=== PATIENT | female | born 1965 | race Caucasian/White ===

== ENCOUNTER 2024-04-25 22:29 | Emergency (ER) | payer BC ==
[2024-04-25] MEDS ORDERED: Ondansetron PF 4 MG/2 ML Vial ONE (22:59)
[2024-04-25] MEDS ORDERED: Ketorolac Tromethamine 30 MG (1 mL) VIAL ONE (23:12)
[2024-04-25 23:33] LABS: Bilirubin Neg (Negative); Blood, Urine Negative (Negative); Clarity Clear (Clear); Glucose, Urine (Dipstick) >=1000 mg/dL (Negative); Ketone, Urine 50 mg/dL (Negative); Leukocyte Negative (Negative); Nitrite Negative (Negative); Protein, Urine (Dipstick) 30 mg/dl (Neg-Trace); Urobilinogen Normal mg/dL (Less than 2)
[2024-04-25] MEDS ORDERED: Morphine 10 MG/ML VIAL ONE (23:43)
[2024-04-25 23:44] LABS: CAUTI Indications for Culture Pelvic or flank pain; RBC/HPF 0-3 HPF (0-3); Squamous Epithelial 0-3 HPF (0-3); WBC/HPF 0-3 HPF (0-3)
[2024-04-25 23:45] LABS: Bacteria/HPF Rare-Few HPF (None Seen); Urine Culture Reflex No No
[2024-04-26 00:07] LABS: #Basophils 0.05 10x3/uL (0.0-0.2); #Eosinphils 0.01 10x3/uL (0.0-0.5); #Monocytes 0.74 10x3/uL (0.0-1.1); #Neutrophils 14.81 10x3/uL (1.5-8.4); %Basophils 0.3 % (0.0-2.0); %Eosinophils 0.1 % (0.0-6.0); %Lymphocytes 11.3 % (18.0-47.0); %Monocytes 4.2 % (0.0-10.0); %Neutrophils 83.5 % (40.0-75.0); ALT (SGPT) 20 U/L (8-55); AST (SGOT) 19 U/L (5-34); Albumin 4.2 g/dL (3.5-5.0); Alkaline Phosphatase 85 U/L (40-110); Anion Gap 20 mmol/L (10-20); BUN (Urea Nitrogen) 12 mg/dL (9.8-20.1); Bilirubin, Total 0.8 mg/dL (0.2-1.2); Calc. Creatinine Clearance 0 mL/min (70-130); Calcium 9.5 mg/dL (7.8-10.44); Carbon Dioxide 23 mmol/L (22-29); Chloride 94 mmol/L (98-107); Estimated GFR 96; Globulin 3.8 g/dL (2.4-3.5); Glucose 305 mg/dL (70-105); Hematocrit 44.4 % (34.9-44.5); Hemoglobin 16.5 g/dL (12.0-15.5); Lipase 13 U/L (8-78); Mean Corpuscular HGB CONC 37.2 g/dL (32.0-36.0); Mean Corpuscular Volume 80.7 fL (81.6-98.3); Mean Platelet Volume 9.5 fL (7.4-10.4); Platelet Count 313 10x3/uL (150-450); Potassium 3.7 mmol/L (3.5-5.1); RBC Distribution Width 12.2 % (11.5-14.5); Sodium 133 mmol/L (136-145); White Blood Cell (WBC) Count 17.7 10x3/uL (3.5-10.5)
[2024-04-26] MEDS ORDERED: Metoprolol Tartrate 5 MG (5 mL) VIAL ONE (00:48)
[2024-04-26] MEDS ORDERED: Morphine 4 MG/ML VIAL ONE (00:48)
[2024-04-26] MEDS ORDERED: niCARdipine 25 MG/10 ML SDV ONE (01:13)
== END 2024-04-26 01:59 | disposition short-term general hospital (02) ==
LOC: CSHERS 22:29
DX: E27.49 Other adrenocortical insufficiency (principal); R91.8 Other nonspecific abnormal finding of lung field; E11.9 Type 2 diabetes mellitus without complications; F17.210 Nicotine dependence, cigarettes, uncomplicated; I10 Essential (primary) hypertension; Z79.84 Long term (current) use of oral hypoglycemic drugs
CPT/HCPCS: 36416; 74176; 80053; 81001; 83690; 85025; J1885; J2270; J2405